=== PATIENT | female | born 1965 | race Caucasian/White ===

== ENCOUNTER 2016-11-09 10:47 | Day surgery (SDC) | payer OTHER ==
[~2016-11-09] VITALS: Ht 167.6 cm; Wt 65.8 kg
[~2016-11-09 10:47] MED LIST: 0.9% Sodium Chloride 1,000 ML IV SCH; Sodium Chloride LOK Flush 10 mL Syringe IV PRN; fentaNYL-PF 50 mCg/mL 2 mL Inj IVPUSH PRN
[2016-11-09 11:13] VITALS: BP 129/91; PULSE 73; RESP 16; O2SAT 99
[2016-11-09] MEDS ORDERED: ALBU8.5H2 INHALATION (11:18)
[2016-11-09] MEDS ORDERED: fentaNYL-PF 50 mCg/mL 2 mL Inj ONE (11:28)
[2016-11-09 12:25] VITALS: BP 77/44; PULSE 77; RESP 16; O2SAT 100
[2016-11-09 12:34] VITALS: BP 85/49; PULSE 71; RESP 16; O2SAT 100
[2016-11-09 12:44] VITALS: BP 83/53; PULSE 73; RESP 16; O2SAT 100
[2016-11-09 12:54] VITALS: BP 81/55; PULSE 78; RESP 16; O2SAT 100
[2016-11-09 13:04] VITALS: BP 122/74; PULSE 78; RESP 16; O2SAT 96
--- NOTE | 2016-11-09 23:12 | ENDO ---
[address] [address] ENDOSCOPY PROCEDURE PATIENT: KHRIS DEL CASTILLO : 1965 MR#: [id number] ADMIT: 11/09/2016 JOB ID: [id number] DATE OF PROCEDURE: 11/09/2016 PRIMARY PROVIDER: Alejo Meehan MD. PROCEDURE: Colonoscopy. INDICATIONS: A 51-year-old female who reports for colon cancer screening. EQUIPMENT: PCOROS-H180AL. SEDATION: 1. Versed 4 mg. 2. Fentanyl 100 mcg. COMPLICATIONS: None identified. BOWEL PREPARATION: Fair, adequate exam. PROCEDURE INFORMATION: After the risks and benefits were explained, written and verbal informed consent was obtained. The patient was brought into the endoscopy suite and placed into the left lateral decubitus position. Sedation was achieved using the above-stated medications with the addition of oxygen via nasal cannula. A digital rectal examination was accomplished. No significant pathology appreciated. The scope was introduced into the rectum and advanced to the cecum as identified by the appendiceal orifice and ileocecal valve. The scope was slowly withdrawn to carefully examine the mucosa for any defects or lesions. Multiple direct views were made through the dentate line for exclusion of pathology. The colon was decompressed. The scope was removed from the patient who tolerated the procedure well. FINDINGS: In the cecum, about the appendiceal orifice, was an approximately 1 cm submucosal mass lesion. However, we pushed on the area with closed forceps and this was extremely soft, demonstrating classic pillowing suggestive of submucosal lipoma. Throughout the remainder of the colon I did not appreciate any other significant pathology. ENDOSCOPIC DIAGNOSES: 1. Cecal submucosal lesion consistent with lipoma. 2. Otherwise visually unremarkable exam. RECOMMENDATIONS: Repeat colonoscopy in 10 years' time, sooner should symptoms warrant.
== END 2016-11-09 23:59 | disposition home or self-care (01) ==
LOC: END 10:47
PROVIDERS: ATTEND Internal Medicine Gastroenterology
DX: Z12.11 Encounter for screening for malignant neoplasm of colon (principal); D17.79 Benign lipomatous neoplasm of other sites
CPT/HCPCS: G0121; G0500; J2250; J3010; J7030